=== PATIENT | female | born 2000 | race Caucasian/White ===

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

== ENCOUNTER 2019-01-25 16:13 | Inpatient (IN) | payer BC ==
[~2019-01-25] VITALS: Ht 162.6 cm; Wt 67.1 kg
[2019-01-25] MEDS ORDERED: LIDOCAINE HCL 1% 20 ML VIAL ONE (16:30)
[2019-01-25] MEDS ORDERED: ACETAMINOPHEN 325 MG TAB ONE (17:31)
[2019-01-25] MEDS ORDERED: MIDAZOLAM HCL 1 MG/ML 2ML VIAL ONE ×2 (17:51→18:11)
[2019-01-25] MEDS ORDERED: MORPHINE SULFATE 2 MG/ML 1ML SYG ONE (19:56)
[2019-01-25] MEDS ORDERED: ONDANSETRON HCL 4 MG/2 ML VIAL ONE (19:56)
[2019-01-25 20:41] LABS: BASOPHILS % (AUTO) 0.6 % (0.0-5.0); EOSINOPHILS % (AUTO) 0.2 % (0.0-8.0); HEMATOCRIT 30.4 % (36-48); MEAN CORPUSCULAR HEMOGLOBIN 29.1 pg (27.0-33.0); MEAN CORPUSCULAR VOLUME 85.7 fL (80-100); MONOCYTES % (AUTO) 5.7 % (3.0-13.0); NEUTROPHILS % (AUTO) 74.5 % (40.0-77.0); PLATELET COUNT (AUTO) 159 K/uL (130-400); RED BLOOD CELL COUNT(AUTO) 3.55 MIL/uL (4.00-5.50); RED CELL DISTRIBUTION WIDTH 12.4 % (11.0-15.5); WHITE BLOOD COUNT (AUTO) 8.9 K/uL (4.8-10.8)
[2019-01-25 20:42] LABS: APPEARANCE,URINE Cloudy (CLEAR); BILIRUBIN,URINE Negative (NEGATIVE); COLOR,URINE Yellow (YELLOW); GLUCOSE, URINE (UA) Negative (NEGATIVE); KETONES,URINE Negative (NEGATIVE); LEUKOCYTE ESTERASE ,URINE Trace (NEGATIVE); NITRATE,URINE Negative (NEGATIVE); OCCULT BLOOD,URINE Negative (NEGATIVE); PH,URINE 7.5 (5.0-8.0); PROTEIN,URINE Negative (NEGATIVE); UROBILINOGEN,URINE 0.2 mg/dL (0.2-1.0)
[2019-01-25 20:50] LABS: AMORPHOUS SEDIMENT,UR Many /LPF (None Seen); BACTERIA,URINE Few /HPF (None Seen); RBC,URINE None Seen /HPF (0-1); WBC,URINE 0-1 /HPF (0-1)
[2019-01-25 20:51] LABS: CREATININE 0.5 mg/dL (0.5-1.5); POTASSIUM 3.7 mmol/L (3.5-5.1)
[2019-01-25 20:52] LABS: INR 0.91 (0.85-1.15); PARTIAL THROMBOPLASTIN TIME 21.2 SEC (26.3-35.5); PROTHROMBIN TIME 9.6 SEC (9.6-11.6)
[2019-01-25 20:56] LABS: ALBUMIN 2.4 g/dL (3.5-5.0); BILIRUBIN,DIRECT 0.1 mg/dL (0.0-0.3); BILIRUBIN,TOTAL 0.2 mg/dL (0.2-1.0); TOTAL PROTEIN, SERUM 5.9 g/dL (6.0-8.3)
[2019-01-25] MEDS ORDERED: ACETAMINOPHEN-CODEINE 300/30MG TAB PO PRN (21:30)
[2019-01-25] MEDS ORDERED: ONDANSETRON ODT 4 MG TAB PO PRN (21:30)
[2019-01-25] MEDS ORDERED: SODIUM CHLORIDE 0.9% 10 ML VIAL IVP SCH (21:30)
[2019-01-25] MEDS ORDERED: DIPHENHYDRAMINE HCL 25 MG CAPSULE PO PRN (21:30)
--- NOTE | 2019-01-25 22:05 | NUR ---
PATIENT RECEIVED FROM ED: Patient came in via stretcher accompanied by Yariel Valdez RN. Patient complaints left shoulder pain with diagnosis of recurrent left shoulder dislocation. She was oriented to her room, call light given, plan of care discussed with patient verbalizes understanding. Left antecubital with saline lock, 20 gauge patent.
[2019-01-25 22:31] VITALS: BP 123/73
[2019-01-25] MEDS ORDERED: FISH1CAP50 PO (22:37)
[2019-01-25] MEDS ORDERED: PREN-66 PO (22:37)
[2019-01-26] VITALS (21 sets, daily range): BP systolic 93–142; BP diastolic 51–75
[2019-01-26] MEDS: MORPHINE SULFATE 2 MG/ML 1ML SYG IVP PRN ×5 (00:27→22:17)
[2019-01-26 05:34] LABS: HEMATOCRIT 27.8 % (36-48); MEAN CORPUSCULAR HEMOGLOBIN 29.7 pg (27.0-33.0); MEAN CORPUSCULAR HGB CONC 34.6 g/dL (32.0-36.0); MEAN CORPUSCULAR VOLUME 85.9 fL (80-100); PLATELET COUNT (AUTO) 204 K/uL (130-400); RED BLOOD CELL COUNT(AUTO) 3.24 MIL/uL (4.00-5.50); RED CELL DISTRIBUTION WIDTH 12.4 % (11.0-15.5); WHITE BLOOD COUNT (AUTO) 9.3 K/uL (4.8-10.8)
--- NOTE | 2019-01-26 07:10 | NUR ---
REPORT RECEIVED FROM ANDREW ZHAO AND PATIENT CARE TRANSFERED AT THIS TIME. PATIENT C/O HAVING PAIN OF 3. INFORMED PATIENT THAT IT WASN'T TIME FOR MORPHINE AND OFFERED TYLENOL #3 AND PATIENT STATED NOT LIKING HOW SHE FEELS WITH TYLENOL #3 AND WOULD RATHER WAIT.
--- NOTE | 2019-01-26 08:15 | NUR ---
DR. TAVERA CALLED RE PATIENT STATUS AND WAS MADE AWARE OF PATIENT WANTING PAIN MEDS BUT MORPHINE IS ORDER Q4H FOR 2MGS. INDICATED WOULD BE COMING TO ROUND ON PATIENT.
[2019-01-26] MEDS: LACTATED RINGERS 1000ML 1,000 ML IV SCH ×2 (08:45→18:36)
[2019-01-26] MEDS ORDERED: MORPHINE SULFATE 2 MG/ML 1ML SYG IVP PRN (08:45)
--- NOTE | 2019-01-26 08:45 | NUR ---
DR. TAVERA ROUNDED ON PATIENT AND PATIENT INDICATED NOT WANTING TO EAT IN CASE THEY DO SURGERY THIS A.M. DR. TAVERA DIS H&P ON PATIENT AND INFORMED PATIENT THAT IT WOULD BE UP TO DR. NUNEZ FAR SURGERY GOES. INDICATED WANTING NST DONE AT 8:00AM AND 8:00 PM. ORDER WAS GIVENT TO START LR AT 150CC/HR AND COULD CHANGE MS ORDER FOR MORPHINE 2MG Q3H. ORDERS WERE ENTERED AND FLUIDS STARTED.
[2019-01-26] MEDS: PRENATAL VITAMIN RX TABLET PO SCH (09:00)
--- NOTE | 2019-01-26 09:00 | NUR ---
DR. NUNEZ CALLED RE PATIENT STATUS AND WAS MADE AWARE OF DR. TAVERA ROUNDING ON PATIENT AND MADE PATIENT AWARE THAT STAY DEPENDED ON HIS PLAN OF CARE AND IF SURGERY WOULD BE DONE. INDICATED HE WOULD BE IN TO SEE PATIENT.
--- NOTE | 2019-01-26 09:30 | NUR ---
DR. NUNEZ ROUNDED ON PATIENT AND DISCUSSED HER HISTORY OF 2 PREVIOUS SX ON SAME SHOULDER DUE TO DISLOCATION AND HAVING TO BE CAUTIOUS DUE TO . PATIENT ON MONITOR AT THIS TIME. PATIENT DID NOT INDICATE MOVEMENT BUT STATES BABY MOVES A LOT. CONSENT OBTAINED AND WAS INFORMED NOT TO MEDICATE PATIENT DUE TO HER GOING FOR SX.
[2019-01-26] MEDS ORDERED: PROPOFOL 10 MG/ML 20ML VIAL IV ONE ×2 (09:56→13:15)
[2019-01-26] MEDS ORDERED: LIDOCAINE PF 2% 5ML ABBOJECT ONE (09:56)
--- NOTE | 2019-01-26 10:15 | NUR ---
PATIENT WAS TAKEN VIA BED TO OR AT THIS TIME AND WAS BROUGHT BACK DUE TO DR. NUNEZ NOT BEING IN HOSPITAL YET. INDICATED TO PATIENT THAT SHE WOULD BE TAKEN BACK TO OR IN ABOUT AN HOUR.
--- NOTE | 2019-01-26 11:40 | NUR ---
PATIENT WAS AGAIN TAKEN TO OR FOR PROCEDURE. PATIENT STABLE BUT C/O OF HAVING PAIN.
--- NOTE | 2019-01-26 13:30 | NUR ---
ICE PACK APPLIED TO LEFT SHOULDER. Addendum: 01/26/19 at 1431 by TRANG HERNANDEZ RN RN Amended: Links added.
[2019-01-26] MEDS ORDERED: MORPHINE SULFATE 4 MG/1ML SYG ONE (13:36)
[2019-01-26] MEDS ORDERED: FENTANYL CITRATE PF 50 MCG/1 ML 2ML VIAL ONE (13:48)
--- NOTE | 2019-01-26 14:15 | NUR ---
KRISTYN CORBETT INFORMED PT CONTINUES TO COMPLAIN OF PAIN, ORDERS GIVEN TO SEND PT TO AND ALLOW DR. TAVERA TO MANAGE PAIN. Addendum: 01/26/19 at 1435 by TRANG HERNANDEZ RN RN Amended: Links added.
--- NOTE | 2019-01-26 14:30 | NUR ---
PATIENT BACK FROM PACU AND C/O HAVING PAIN TO LEFT SHOULDER AND IS CRYING. ON REPORT WAS INFORMED THAT PATIENT HAD RECEIVED SEVERAL DOSES OF MORPHINE 4MGS AND FENTANYL. ON ARRIVAL AND ASSESSMENT NOTED PATIENT HAD ICE PACK TO LEFT SHOULDER. WILL REPLACE IN 2 HOURS.
--- NOTE | 2019-01-26 16:00 | NUR ---
ICE PACK APPLIED TO LEFT SHOULDER PER DOCTOR'S NUNEZ'S ORDERS.
--- NOTE | 2019-01-26 17:20 | NUR ---
INITIAL: Met with pt this afternoon to discuss dcp. Pt states that she lives w her fiancee and is independent w ambulation and ADLs. She does not own any DME or receive services. Per pt she feels safe and comfortable to return home at ne. Will continue to follow and wait for Md recommendations. Addendum: 01/26/19 at 1723 by WANDA SIERRA CM Amended: Links added.
--- NOTE | 2019-01-26 19:10 | NUR ---
REPORT GIVEN TO ANDREW ZHAO AND PATIENT CARE TRANSFERED AT THIS TIME. PATIENT WAS BEING ASSISTED TO BATHROOM BY DANII AT THIS TIME. PATIENT STABLE AND WAS MEDICATED PRIOR TO CHANGE OF SHIFT REQUESTED FOR PAIN.
[2019-01-27] MEDS: LACTATED RINGERS 1000ML 1,000 ML IV SCH (02:21)
[2019-01-27 03:56] VITALS: BP 111/67
[2019-01-27] MEDS: MORPHINE SULFATE 2 MG/ML 1ML SYG IVP PRN (04:01)
[2019-01-27 07:45] VITALS: BP 101/56
[2019-01-27] MEDS: PRENATAL VITAMIN RX TABLET PO SCH (08:20)
--- NOTE | 2019-01-27 09:30 | NUR ---
DR. TAVERA ROUNDED AND DISCHARGED TO HOME. PATIENT INSTRUCTED TO FOLLOW UP WITH HER OB DOCTOR AFTER DISCHARGE AND ALSO DR. NUNEZ LEFT ORDERS FOR PATIENT TO FOLLOW UP WITH HER SURGEON THAT HAS DONE 2 PREVIOUS SURGERIES ON HER LEFT SHOULDER BEFORE VERBALIZED UNDERSTANDING.
--- NOTE | 2019-01-27 09:35 | NUR ---
DR. TAVERA WANT GIVEN THIS A.M. NST AND INDICATED STRIP WONDERFUL. BASELINE IS 135 WITH ACCELS TO 150. STRIP IS REACTIVE AND INDICATED ALOT OF MOVEMENT.
--- NOTE | 2019-01-27 10:45 | NUR ---
PATIENT WAS GIVEN DISCHARGE INSTRUCTIONS AND INSTRUCTED ON NEED TO TAKE OVER THE COUNTER TYLENOL INSTRUCTED BY OB AND SURGEON FOR PAIN. PATIENT DENIES PAIN AT THIS TIME. VERBALIZED UNDERSTANDING INSTRUCTIONS GIVEN FOR 2ND AND 3RD TRIMESTER AND INFO ON EFFECTS OF SMOKING DURING .
--- NOTE | 2019-01-27 11:10 | NUR ---
SALINE LOCK WAS REMOVED AND SITE WNL. PATIENT TAKEN TO PRIVATE VEHICLE AND WAS DISCHARGED TO HER [place]. PATIENT STABLE AND CHANGED HER CLOTHES INDEPENDENTLY. STATES USED TO DEALING WITH HER SHOULDER FOR A LONG TIME.
== END 2019-01-27 11:10 | disposition home or self-care (01) | DRG 833 ==
LOC: EDH 16:13 → EDHIP 19:58 → OBSVTOIN 19:58 → WSH 22:28
PROVIDERS: ADMIT Internal Medicine; ATTEND Internal Medicine
PROC: 0RSKXZZ Reposition Left Shoulder Joint, External Approach (ICD-10-PCS; principal; 2019-01-26 12:55)
DX: O26.893 Other specified pregnancy related conditions, third trimester (principal); M24.412 Recurrent dislocation, left shoulder; Z3A.28 28 weeks gestation of pregnancy
CPT/HCPCS: 36415; 59025; 73020; 73030; 76805; 80048; 80076; 81001; 85025; 85027; 85610; 85730; 86850; 86900; 86901; 93005; A4606; G0378; J2001; J2250; J2270; J2405; J2704; J3010; J7120